=== PATIENT | female | born 1940 | race Caucasian/White ===

== ENCOUNTER → 2016-09-18 | Outpatient (CLI) | payer BC ==
[~2016-09-18] MED LIST: CLTP PO; DRV100 PO; EST1 PO; FSM70 PO; MEDR2.5T PO; MULT-506 PO; SYN88 PO; [UNRECOGNIZED DRUG - CODE] PO
--- NOTE | 2016-09-18 15:49 | MAMMOGRAPHY REPORT ---
BILATERAL DIGITAL SCREENING MAMMOGRAM WITH CAD: 09/18/2016 CLINICAL HISTORY: Routine screening. Patient has no complaints. TECHNIQUE: Bilateral CC and MLO views were obtained. Current study was also evaluated with a Comput er Aided Detection (CAD) system. COMPARISON: Comparison is made to exams dated: 09/17/2015 mammogram, 09/16/2014 mammogram, 09/12/2013 mammogram, 09/11/2012 mammogram, 09/08/2011 mammogram, and 09/14/2010 mammogram - [facility]. BREAST COMPOSITION: The tissue of both breasts is heterogeneously dense, which may obscure small ma sses. FINDINGS: There is a 6 mm nodular asymmetry with possible associated microcalcification in the far superior posterior right breast, only seen on the MLO view, for which additional spot compression to mosynthesis and spot magnification views as well as possible ultrasound are recommended. A spot com pression exaggerated lateral CC view would be useful. A linear scar marker overlies the medial right breast. There are scattered benign-appearing calcifi cations bilaterally. No other suspicious mass, architectural distortion or cluster of microcalcifica tions is seen. IMPRESSION: ACR BI-RADS CATEGORY 0: INCOMPLETE EVALUATION: NEED ADDITIONAL IMAGING EVALUATION The 6 mm nodular asymmetry with possible associated microcalcification in the superior, posterior ri ght breast needs additional evaluation. The patient will be called to schedule an appointment. Approximately 10% of breast cancers are not detected with mammography. A negative mammographic repor t should not delay biopsy if a clinically suggestive mass is present. Yina Hess M.D. ay/:09/18/2016 15:27:10 Prize Coordinator: Cathy Sepulveda, [facility] letter sent: Addl Imaging 0 BI-RADS Code: ACR BI-RADS Category 0: Incomplete Evaluation: Need Additional Imaging Evaluation
== END | disposition home or self-care (01) ==
LOC: C.MAMM 14:57
PROVIDERS: ATTEND Obstetrics & Gynecology
DX: Z12.31 Encounter for screening mammogram for malignant neoplasm of breast (principal)

== ENCOUNTER → 2016-09-29 | Outpatient (CLI) | payer BC ==
--- NOTE | 2016-09-29 15:41 | MAMMOGRAPHY REPORT ---
UNILATERAL RIGHT DIGITAL DIAGNOSTIC MAMMOGRAM TOMOSYNTHESIS AND TARGETED RIGHT ULTRASOUND: 09/29/2016 CLINICAL HISTORY: Callback from screening mammogram for right breast mass. TECHNIQUE: Breast tomosynthesis in addition to standard 2D mammography was performed. Spot zaynab sruthi right CC and MLO 2-D and tomosynthesis images and spot magnification right cc and ML views were obtained. COMPARISON: Comparison is made to exams dated: 09/18/2016 mammogram, 09/17/2015 mammogram, 09/16/2014 mammogram, 09/12/2013 mammogram, 09/11/2012 mammogram, and 09/08/2011 mammogram - [facility]. BREAST COMPOSITION: The tissue of the right breast is heterogeneously dense, which may obscure smal l masses. FINDINGS: Spot compression views of the right breast demonstrate a lobulated partially circumscribe d and partially obscured 7 mm mass within the right upper outer quadrant far posteriorly. Spot magn ification views of the region demonstrate a few punctate calcifications seen within the mass. Targeted ultrasound was performed of the right upper outer quadrant in the region of the mammographi c mass. In the right breast at 9:30, 9 cm from the nipple, there is an oval circumscribed nearly an echoic cystic-appearing mass which measures 3 x 3 mm. In the right breast at 9:30, 9 cm from the ni pple, there is a round circumscribed anechoic 5 x 5 mm mass which is consistent with a benign simple cyst. In the right breast at 9:30, 6 mm from the nipple, there is a small cluster of anechoic cyst s with some intervening echogenic tissue which measures 6 x 3 x 6 mm, and likely represents focal fi brocystic changes. An isoechoic oval circumscribed 6 x 4 mm mass is seen within the right breast at 11:00, 9 cm from the nipple, which is probably benign and likely represents a normal fat lobule. N o suspicious masses are evident. One of the cysts, possibly the cyst in the right breast at 9:30, 9 cm from the nipple, may correlate with the mammographic mass. The patient was adamant that she did not want any biopsies. Therefore, recommend short interval follow-up mammograms and possible breas t ultrasound in 6 months to confirm stability, given that the mass is not clearly stable to prior ex ams. IMPRESSION: ACR-BI-RADS CATEGORY 3: PROBABLY BENIGN, TARGETED ULTRASOUND ACR-BI-RADS CATEGORY 3: MN OBABLY BENIGN Partially circumscribed mass with a few punctate calcifications seen mammographically, with multiple cysts seen within the right upper outer quadrant on ultrasound, one of which may correlate with the mammographic mass. Findings are probably benign and likely represent fibrocystic changes. Recomme nd follow-up diagnostic tomosynthesis mammograms and possible ultrasound of the right breast in 6 mo nths. The patient has been verbally notified of the results. Approximately 10% of breast cancers are not detected with mammography. A negative mammographic repor t should not delay biopsy if a clinically suggestive mass is present. Lizeth Orourke M.D. ah/:09/29/2016 15:08:58 Oil Rag Washer: Cathy Sepulveda, [facility] letter sent: Follow Up Recommended 3 BI-RADS Code: ACR-BI-RADS Category 3: Probably Benign Ultrasound BI-RADS: ACR-BI-RADS Category 3: P robably Benign
== END | disposition home or self-care (01) ==
LOC: C.MAMM 13:56
PROVIDERS: ATTEND Obstetrics & Gynecology
DX: N63 Unspecified lump in breast (principal); R92.1 Mammographic calcification found on diagnostic imaging of breast; N60.01 Solitary cyst of right breast

== ENCOUNTER → 2017-02-13 | Outpatient (CLI) | payer BC | END | disposition home or self-care (01) | LOC: C.LABSPEC 14:03 | PROVIDERS: ATTEND Obstetrics & Gynecology | DX: N76.0 Acute vaginitis (principal) ==

== ENCOUNTER → 2017-03-14 | Outpatient (CLI) | payer BC | END | disposition home or self-care (01) | LOC: C.PAPS 13:45 | PROVIDERS: ATTEND Obstetrics & Gynecology | DX: N92.5 Other specified irregular menstruation (principal); N95.2 Postmenopausal atrophic vaginitis ==

== ENCOUNTER → 2017-04-04 | Outpatient (CLI) | payer BC ==
--- NOTE | 2017-04-05 07:52 | MAMMOGRAPHY REPORT ---
UNILATERAL RIGHT DIGITAL DIAGNOSTIC MAMMOGRAM TOMOSYNTHESIS WITH CAD AND TARGETED RIGHT ULTRASOUND: 1 06/04/2016 CLINICAL HISTORY: 77-year-old woman presents for follow-up in the right breast, for a partially circu mscribed 7 mm mass in the upper outer posterior aspect of the breast. She has a history of 3 prior b enign breast biopsies. TECHNIQUE: Right CC, XCCL and MLO tomosynthesis images with reconstructed C view and spot magnificati on right ML and XCCL views were obtained. Current study was also evaluated with a Computer Aided Det ection (CAD) system. COMPARISON: Comparison is made to exams dated: 09/29/2016 mammogram, 09/29/2016 ultrasound, 09/18/2016 ma mmogram, 09/17/2015 mammogram, 09/16/2014 mammogram, and 09/12/2013 mammogram - [facility]. BREAST COMPOSITION: The tissue of the right breast is heterogeneously dense, which may obscure small masses. FINDINGS: A linear scar marker overlies the upper inner right breast. There are a few benign rim steve cifications. On the MLO tomosynthesis slice 11/46, a partially circumscribed lobulated mass is again identified, measuring 6.7 mm. This has not significantly changed in size or appearance comparing to the prior diagnostic mammograms dated 09/29/2016. A small grouping of punctate microcalcifications is associated with this mass. The microcalcifications are not changed compared to prior spot magnifi cation views. No architectural distortion. There is other nodularity in the superior right breast. No focal area of architectural distortion, new asymmetry or suspicious microcalcifications. Targeted ultrasound was performed in the right upper outer quadrant. In the 9:30 right breast, 8 cm from the nipple, an oval parallel circumscribed anechoic cyst is again identified measuring 4.7 x 1.9 x 4.0 mm. Another oval parallel or well circumscribed cyst is seen in the right 9:30 breast, 8 cm f rom the nipple, measuring 3.4 x 3.2 x 1.9 mm. A thin parallel anechoic cyst is seen in the 9:00 righ t breast, 5 cm from the nipple, which could represent a collapsing cyst with thickened rim, measuring approximately 2.6 mm. No suspicious solid mass is identified. It is unclear if one of these benign cysts correlates with the partially circumscribed mammographic masses. IMPRESSION: ACR-BI-RADS CATEGORY 3: PROBABLY BENIGN, TARGETED ULTRASOUND ACR-BI-RADS CATEGORY 3: PRO BABLY BENIGN There has been no significant interval mammographic change in the appearance of a partially circumscr ibed and lobulated 7 mm mass in the upper outer posterior right breast. Faint associated punctate mi crocalcifications also appear similar, and are best appreciated on the right XCCL view. This mass mo st likely represents a benign cyst given the stability over 6 months, but it is unclear which cyst ma y correlate given that numerous cysts are seen on ultrasound. Another six-month follow-up right diag nostic tomosynthesis mammogram and spot magnification views are recommended in 6 months. Annual left mammography will also be due at that time. These results and recommendations were discussed with the patient at the time of the exam. Approximately 10% of breast cancers are not detected with mammography. A negative mammographic report should not delay biopsy if a clinically suggestive mass is present. Yina Hess M.D. ay/:04/04/2017 15:15:52 Coke Loader: Unique MORENO)(Mayur), [facility] letter sent: Follow Up Recommended 3 BI-RADS Code: ACR-BI-RADS Category 3: Probably Benign Ultrasound BI-RADS: ACR-BI-RADS Category 3: Pr obably Benign
== END | disposition home or self-care (01) ==
LOC: C.MAMM 13:57
PROVIDERS: ATTEND Obstetrics & Gynecology
DX: N63.11 Unspecified lump in the right breast, upper outer quadrant (principal)

== ENCOUNTER → 2017-07-10 | Outpatient (CLI) | payer BC | END | disposition home or self-care (01) | LOC: C.PATHSPEC 16:28 | PROVIDERS: ATTEND Physician Assistant | DX: L81.4 Other melanin hyperpigmentation (principal) ==

== ENCOUNTER → 2017-09-19 | Outpatient (CLI) | payer BC ==
--- NOTE | 2017-09-20 14:44 | MAMMOGRAPHY REPORT ---
BILATERAL DIGITAL DIAGNOSTIC MAMMOGRAM TOMOSYNTHESIS WITH CAD AND TARGETED RIGHT ULTRASOUND: 8 CLINICAL HISTORY: 77-year-old woman presents for follow-up in the right breast for a benign-appearing circumscribed and lobulated mass and associated faint punctate grouped microcalcifications in the up per outer far posterior right breast. Also due for annual bilateral screening mammography. TECHNIQUE: Bilateral breast tomosynthesis in addition to standard 2D mammography was performed. Spot magnification right CC and ML views were also obtained. Current study was also evaluated with a [employer] Aided Detection (CAD) system. COMPARISON: Comparison is made to exams dated: 04/04/2017 mammogram, 04/04/2017 ultrasound, 09/29/2016 m ammogram, 09/29/2016 ultrasound, 09/18/2016 mammogram, and 09/17/2015 mammogram - [facility]. BREAST COMPOSITION: The tissue of both breasts is heterogeneously dense, which may obscure small mas ses. FINDINGS: A linear scar marker overlies the medial right breast at approximately 1:00 through 3:00. The glandular pattern is similar to prior mammograms. There are scattered benign coarse calcificatio ns in the breasts. There is a gently lobulated, 6 x 5 x 5 mm mass in the upper outer far posterior r ight breast, best seen on the exaggerated lateral CC view with small grouping of associated punctate microcalcifications, that is stable in size dating back to September 2016. Based on the spot magnification views, the associated microcalcifications are also stable in number, most likely representing benign fibrocystic change. No other new suspicious masses, asymmetries, areas of architectural distortion or new microcalcifications are identified bilaterally. Targeted ultrasound was performed in the upper outer quadrant of the right breast. There is a lobula david predominantly anechoic benign cyst in the 930 right breast approximately 10 cm from the nipple me asuring 5.2 x 2.0 x 3.9 mm. This may possibly correlate with the stable mammographic mass and has a benign sonographic appearance. No suspicious solid mass is seen. Note is made of a benign right axi llary lymph node as well. IMPRESSION: ACR-BI-RADS CATEGORY 3: PROBABLY BENIGN, TARGETED ULTRASOUND ACR-BI-RADS CATEGORY 3: PRO BABLY BENIGN Stable mammographic appearance of the breasts including a benign-appearing gently lobulated and circu mscribed low-density mass with associated small grouping of punctate micro calcifications in the uppe r outer posterior right breast, which is unchanged for approximately 1 year. Another 12 month follow -up diagnostic mammogram including spot magnification views and possible ultrasound is recommended to ensure at least 2 years of stability to confirm benignity. Annual bilateral screening mammography w ill also be due at that time. These results and recommendations were discussed with the patient at the time of the exam. Approximately 10% of breast cancers are not detected with mammography. A negative mammographic report should not delay biopsy if a clinically suggestive mass is present. Yina Hess M.D. ay/:09/19/2017 15:18:53 Esthetician: Cathy VILLAVICENCIO(R)(M), [facility] letter sent: Follow Up Recommended 3 BI-RADS Code: ACR-BI-RADS Category 3: Probably Benign Ultrasound BI-RADS: ACR-BI-RADS Category 3: Pr obably Benign
== END | disposition home or self-care (01) ==
LOC: C.MAMM 14:12
PROVIDERS: ATTEND Obstetrics & Gynecology
DX: R92.8 Other abnormal and inconclusive findings on diagnostic imaging of breast (principal)